=== PATIENT | female | born 1945 | race Caucasian/White ===

== ENCOUNTER → 2021-04-15 | Outpatient (CLI) | payer MEDICARE, OTHER ==
[~2021-04-15] MED LIST: TYLENOL 500 MG500 MG PO
== END ==
LOC: KOH-I 14:34
DX: M51.36 Other intervertebral disc degeneration, lumbar region (principal)
CPT/HCPCS: 72100

== ENCOUNTER → 2021-07-03 | Outpatient (CLI) | payer MEDICARE, OTHER | LOC: EMI 08:15 | DX: M51.36 Other intervertebral disc degeneration, lumbar region (principal); M51.26 Other intervertebral disc displacement, lumbar region | CPT/HCPCS: 72148 ==